=== PATIENT | male | born 1960 | race Caucasian/White ===

== ENCOUNTER 2020-02-07 18:24 | Emergency (ER) | payer OTHER ==
[~2020-02-07] VITALS: Ht 172.7 cm; Wt 82.6 kg
[2020-02-07] MEDS ORDERED: CICLODAN90 GM (18:52)
[2020-02-07] MEDS ORDERED: CLINDAMYCIN PH1 EACH (18:53)
== END 2020-02-07 19:26 | disposition home or self-care (01) ==
LOC: ER 18:24
DX: B35.3 Tinea pedis (principal); R60.0 Localized edema